=== PATIENT | male | born 1960 | race Caucasian/White ===

== ENCOUNTER 2016-09-04 09:00 | Inpatient (IN) | payer OTHER ==
--- NOTE | ~2016-09-04 | HP ---
Unit #: [id number] #: [id number] Patient: ARABELLA LEZAMA [id number] [place] [address] [id number] MR#: [id number] NAME: ARABELLA LEZAMA. ROOM: P252 Age: 56 Sex: M Admission Date: 09/04/2016 : 1960 Attending Physician: Quoc Izaguirre M.D. Admitting Physician: Quoc Izaguirre M.D. Primary Care Physician: Generic Doctor Not In System HISTORY AND PHYSICAL HISTORY OF PRESENT ILLNESS Arabella is a 56 year old, admitted to [facility] because of his polysubstance abuse which includes cocaine, methamphetamine, and alcohol. PAST MEDICAL HISTORY 1. Long history of illicit substance abuse to include crack cocaine and methamphetamine. 2. History of alcohol abuse. 3. High blood pressure 4. Hyperlipidemia. 5. Chronic obstructive pulmonary disease. PAST SURGICAL HISTORY 1. Right hand. 2. Cataracts. 3. Hydrocele repaired as a young boy. ALLERGIES No known drug allergies. SOCIAL HISTORY He smokes greater than two packs per day, drinks at least twelve beers on a daily basis, and admits to regular use of cocaine and methamphetamine. FAMILY HISTORY Medically noncontributory. REVIEW OF SYSTEMS CONSTITUTIONAL: No fever or chills. HEENT: Denies any sore throat, ear pain or runny nose. CARDIOVASCULAR: Denies chest pain, irregular heart rhythm or palpitations. CHEST: Denies shortness of breath or cough. No hemoptysis. GASTROINTESTINAL: Denies nausea, vomiting, diarrhea or chronic constipation. ENDOCRINE: Denies history of increased thirst or urination. No recent significant weight loss or gain. GENITOURINARY: Denies dysuria, frequency, or hematuria. SKIN: Denies any rashes. HEMATOLOGIC: Denies history of increased bleeding or bruising. MUSCULOSKELETAL: Denies any hot, swollen joints. No generalized muscle pain. NEUROLOGIC: Denies problems with vision or speech. No frequent, severe headaches. No numbness, tingling or weakness in any extremities. Denies Unit #: [id number] #: [id number] Patient: ARABELLA LEZAMA loss of bladder or bowel control. CURRENT MEDICATIONS Detox protocol. PHYSICAL EXAMINATION GENERAL: Alert, well-nourished, no apparent distress. VITAL SIGNS: Blood pressure 152/112, heart rate 100, respirations 16, and temperature 98.6. SKIN: Warm and dry without rash or lesion. HEENT: Normocephalic. TMs not viewed. Oral and nasal passages clear. Conjunctivae clear. PERRLA. EOMs intact. NECK: Supple without lymphadenopathy or thyromegaly. HEART: Regular rate and rhythm without murmur. LUNGS: Decreased breath sounds bilaterally, harsh cough noted. ABDOMEN: Soft, nontender. : Not done. EXTREMITIES: No evidence of cyanosis, clubbing or edema. Moves all without focal deficit. NEUROLOGICAL: Grossly within normal limits. Cranial Nerves: II: Visual messer are intact. III, IV AND : Extraocular movements are intact. Pupils are equal, round and reactive to light. V: Facial sensation is grossly normal. VII: Facial movements and expression are normal. VIII: Auditory acuity grossly intact. IX, X: Uvula is midline. Phonation is normal. XI: Patient shrugs shoulders and turns head normally. XII: Tongue protrudes in the midline. Sensory and Motor Function: Sensory and motor sensation is grossly normal. Motor: moves all extremities well. Coordination: Gait is normal. Deep Tendon Reflexes: Intact. IMPRESSION 1. Psychiatric admission. 2. History of polysubstance abuse. 3. Chronic obstructive pulmonary disease. RECOMMENDATIONS Psychiatric, per psychiatrist. MEDICAL 1. I see no contraindications to participating in facility's activities. 2. Start albuterol nebulizers q.4h while awake. MEDICAL PROGNOSIS Good. MEDICAL CONDITION Stable. Dictated by... Indigo Rosenberg P.A.-C. for Ellen Juarez/gabriel TD: 09/05/2016 11:22 JOB #: [id number] Unit #: [id number] #: [id number] Patient: ARABELLA LEZAMA HISTORY AND PHYSICAL Page 1 of 1 X Indigo Rosenberg HISTORY AND PHYSICAL
--- NOTE | ~2016-09-04 | PA ---
Unit #: [id number] #: [id number] Patient: ARABELLA LEZAMA [id number] [place] [address] [id number] MR#: [id number] NAME: ARABELLA LEZAMA ROOM: P252 Age: 56 Sex: M Admission Date: 09/04/2016 : 1960 Date of Assessment: Attending Physician: Quoc Izaguirre M.D. Admitting Physician: Quoc Izaguirre M.D. Primary Care Physician: Roberta Doctor Not In System PSYCHIATRIC ASSESSMENT DATE OF SERVICE 09/05/2016. INFORMANTS The patient, reliable; OLOP, reliable. CHIEF COMPLAINT "I've a real bad drug problem." HISTORY OF PRESENT ILLNESS Arabella is a 56-year-old man, who reports auditory hallucinations and bizarre experiences due to ongoing drug use. His family reiterated that these were unusual for him and he had no suicidal ideation, intent, or plan. He was admitted for stabilization. PAST PSYCHIATRIC HISTORY One previous admission to this facility at the age of 20 for "behavioral problems." He does not currently take psychiatric medications. FAMILY PSYCHIATRIC HISTORY None reported. SOCIAL HISTORY The patient denied a history of childhood abuse or neglect. He is a heterosexual man with no current partner. He is a 10th grade graduate who is currently unemployed. He is living in a house with his family at this time. PAST MEDICAL HISTORY No chronic medical problems. MEDICATIONS None currently. ALLERGIES No known medication allergies. SUBSTANCE USE HISTORY The patient reports history of abusing alcohol and amphetamines on a frequent basis. MENTAL STATUS EXAMINATION The patient presented as a mildly disheveled man, who appeared his stated Unit #: [id number] #: [id number] Patient: ARABELLA LEZAMA age. He was cooperative with the examination. His speech was spontaneous and easily understood. Musculoskeletal examination was calm. His mood was mildly depressed with a congruent affect. He was alert and fully oriented. His memory and concentration were fair to good. His thought processes were generally goal directed, but he reported auditory and visual disturbances and vague suicidal ideation. Insight and judgment were fair. Fund of knowledge and abstraction were intact. ASSETS AND LIABILITIES The patient is in general good health and has supportive family. Liabilities include ongoing polysubstance use. ADMITTING DIAGNOSES AXIS I: Alcohol dependence, amphetamine abuse. AXIS II: No diagnosis. AXIS III: None acute. AXIS IV: AXIS V: PSYCHIATRIC PLAN The patient was admitted and placed on the alcohol detox protocol. Laboratory studies and physical examination will be ordered and reviewed. TREATMENT GOALS Resolution of intoxication, improvement in insight, and improvement in coping skills. DISCHARGE PLANNING Follow up with CD-IOP at this facility. ESTIMATED LENGTH OF STAY 5 days. Dictated by... Quoc Izaguirre M.D. SHELBY/omar TD: 09/14/2016 03:39 JOB #: [id number] PSYCHIATRIC ASSESSMENT Page 1 of 1 X Quoc Izaguirre MD X PSYCHIATRIC ASSESSMENT
--- NOTE | ~2016-09-04 | DS ---
Unit #: [id number] #: [id number] Patient: ARABELLA LEZAMA [id number] [facility] [address] [place] [address] [id number] I MR#: [id number] NAME: ARABELLA LEZAMA. ROOM: [facility] Age: 56 Sex: M Admission Date: 09/04/2016 : 1960 Discharge Date: 09/06/2016 Attending Physician: Quoc Izaguirre M.D. Primary Care Physician: Generic Doctor Not In System DISCHARGE SUMMARY REASON FOR ADMISSION Mr. Lezama is a 56-year-old man with a history of polysubstance dependence, who came in reporting that his drug use has caused increased dysphoria and perceptual disturbances. He had no suicidal ideation, intent, or plan, but did report auditory and visual hallucinations. He was admitted for detox and further assessment. DIAGNOSTIC STUDIES LABORATORY RESULTS: Please see hospital chart. HOSPITAL COURSE The patient was admitted and placed on the alcohol detox protocol. He did not require initiation of an anti-depressant or antipsychotic medication. He showed rapid clearance of psychotic symptoms and did not show any adverse effects from withdrawal including delirium, hallucinations, or confusion. On the date of discharge, he was able to contract for safety in the outpatient setting. DISCHARGE DIAGNOSES AXIS I: Alcohol dependence with withdrawal, uncomplicated; amphetamine abuse. AXIS II: No diagnosis. AXIS III: None acute. AXIS IV: AXIS V: DISCHARGE INSTRUCTIONS Follow up with the CD-IOP in the evening at this facility. DISCHARGE MEDICATIONS None. CONDITION AT DISCHARGE Improved. PROGNOSIS Good if the patient maintains sobriety and followup. DIET AND ACTIVITY Ad giulia. Unit #: [id number] #: [id number] Patient: ARABELLA LEZAMA Dictated by... Quoc Izaguirre M.D. [facility]/omar TD: 09/14/2016 03:19 JOB #: [id number] DISCHARGE SUMMARY Page 1 of 1 X Quoc Izaguirre MD X DISCHARGE SUMMARY
[2016-09-05 09:55] LABS: BASOPHIL# 0.1 X10e3 (0-0.3); EOSINOPHIL# 0.5 X10e3 (0-0.7); EOSINOPHIL% 4.8 % (0.0-7.0); HEMATOCRIT 47.5 % (38.0-50.0); HEMOGLOBIN 15.8 gm/dL (13.0-16.0); LYMPHOCYTE# 2.6 X10e3 (1.0-3.5); LYMPHOCYTE% 27.6 % (17.0-45.0); MEAN CELL VOLUME 96.6 FL (83-96); MEAN CORPUSCULAR HEMOGLOBIN 32.1 PG (28-34); MEAN CORPUSCULAR HGB CONC 33.2 g/dL (30-36); MEAN PLATELET VOLUME 7.9 FL (6.5-11.5); MONOCYTE# 0.8 X10e3 (0-1.0); NEUTROPHIL# 5.6 X10e3 (1.5-7.1); NEUTROPHIL% 58.6 % (40-75); PLATELET COUNT 311 X10e3 (140-420); RED BLOOD COUNT 4.92 X10e (3.90-5.60); RED CELL DISTRIBUTION WIDTH 12.7 % (11.0-15.5); WHITE BLOOD COUNT 9.6 X10e3 (4.0-10.5)
[2016-09-05 09:57] LABS: DIFF IND NO
[2016-09-05 10:03] LABS: URINE APPEARANCE CLEAR; URINE BILIRUBIN NEG (NEG); URINE BLOOD NEG (NEG); URINE COLOR DK YELLOW; URINE GLUCOSE NEG (NEG); URINE KETONE NEG (NEG); URINE LEUKOCYTE ESTERASE NEG (NEG); URINE NITRATE NEG (NEG); URINE PH 5.5 (5-8); URINE PROTEIN NEG (NEG); URINE UROBILINOGEN 0.2 MG/DL (NEG)
[2016-09-05 10:08] LABS: ALBUMIN SERUM 3.7 g/dL (3.5-5.0); BILIRUBIN,TOTAL 0.7 mg/dL (0.2-2.0); BUN/CREATININE RATIO 17.77; CALCIUM SERUM 8.9 mg/dL (8.4-10.2); CREATININE SERUM 0.9 mg/dL (0.6-1.4); GLOM FILT RATE Estimated 96.5 mL/min (>60); POTASSIUM 4.4 mmol/L (3.5-5.1); PROTEIN TOTAL SERUM 6.6 g/dL (6.0-8.3)
[2016-09-05 12:43] LABS: AMPHETAMINE POS (NEG); BARBITURATES NEG (NEG); BENZODIAZEPINES NEG (NEG); COCAINE NEG (NEG); MARIJUANA NEG (NEG); OPIATES NEG (NEG); TRICYCLIC ANTIDEPRESSANTS NEG (NEG); U METHADONE NEG (NEG)
== END 2016-09-06 12:30 | disposition home or self-care (01) | DRG 897 ==
LOC: P2L 13:18
PROVIDERS: Psychiatry & Neurology Psychiatry
PROC: HZ2ZZZZ Detoxification Services for Substance Abuse Treatment (ICD-10-PCS; principal; 2016-09-04)
DX: F10.230 Alcohol dependence with withdrawal, uncomplicated (principal); F14.10 Cocaine abuse, uncomplicated; I10 Essential (primary) hypertension; F15.10 Other stimulant abuse, uncomplicated; Z56.0 Unemployment, unspecified; E78.5 Hyperlipidemia, unspecified; J44.9 Chronic obstructive pulmonary disease, unspecified; F17.210 Nicotine dependence, cigarettes, uncomplicated
CPT/HCPCS: 80053; 80307; 81003; 85025; 86592

== ENCOUNTER 2016-09-14 20:00 | Inpatient (IN) | payer OTHER ==
[~2016-09-14] VITALS: Ht 172.7 cm; Wt 78.0 kg
--- NOTE | ~2016-09-14 | DS ---
Unit #: [id number] #: [id number] Patient: ARABELLA LEZAMA [id number] [place] [address] [id number] I MR#: [id number] NAME: ARABELLA LEZAMA. ROOM: P178 Age: 56 Sex: M Admission Date: 09/14/2016 : 1960 Discharge Date: 09/16/2016 Attending Physician: Quoc Izaguirre M.D. Primary Care Physician: Generic Doctor Not In System DISCHARGE SUMMARY REASON FOR ADMISSION Mr. Lezama is a 56-year-old man recently discharge from this facility who used "ice" and methamphetamine and demonstrated an extremely disorganized and bizarre state. His father did not feel he could handle him outside of the hospital and the patient was admitted for stabilization. LABORATORY DATA Please see hospital chart. HOSPITAL COURSE Patient was admitted and empirically started on Zyprexa 10 mg at bedtime. His amphetamine induced psychosis had a minimal extent, and quickly resolved. He had no suicidal ideation, intent or plan after discharge and continued to have somewhat superficial insight into his need for treatment. He was referred to the evening CD IOP program due to his work history. DISCHARGE DIAGNOSIS AXIS I: Amphetamine use psychotic disorder, history of alcohol dependence. AXIS II: No diagnosis. AXIS III: None acute. DISCHARGE INSTRUCTIONS Instructed the patient to follow up with the evening CD IOP at [facility]. DISCHARGE MEDICATIONS Zyprexa 10 mg at bedtime for a further 7 days for amphetamine induced psychosis. CONDITION ON DISCHARGE Fair. PROGNOSIS Fair. DIET AND ACTIVITY Per primary care doctor. Dictated by... Quoc Izaguirre M.D. Unit #: [id number] #: [id number] Patient: ARABELLA LEZAMA [facility]/to TD: 10/02/2016 22:28 JOB #: [id number] DISCHARGE SUMMARY Page 1 of 1 X Quoc Izaguirre MD X DISCHARGE SUMMARY
--- NOTE | ~2016-09-14 | PA ---
Unit #: [id number] #: [id number] Patient: ARABELLA LEZAMA [id number] [facility] [address] [place] [address] [id number] I MR#: [id number] NAME: ARABELLA LEZAMA. ROOM: P178 Age: 56 Sex: M Admission Date: 09/14/2016 : 1960 Date of Assessment: 09/15/2016 Attending Physician: Quoc Izaguirre M.D. Admitting Physician: Quoc Izaguirre M.D. Primary Care Physician: Generic Doctor Not In System PSYCHIATRIC ASSESSMENT DATE OF SERVICE 09/15/2016. INFORMANTS The patient, partially reliable. The patient's family, reliable. OLOP, reliable. CHIEF COMPLAINT Psychosis. HISTORY OF PRESENT ILLNESS Mr. Lezama is a 56-year-old man, who was recently discharged from this facility. The patient used "ice" style methamphetamine this evening and is in an extremely disorganized and bizarre state. His blood pressure was also elevated, although not critically so. His father felt he was unable to manage him in the home environment, and the patient could not give a reliable contract for safety or in fact any reliable historical information. He was readmitted. PAST PSYCHIATRIC HISTORY One previous stay at this facility for drug use and a stay at the age of 20 for behavioral problems. He has no psychiatric medications. FAMILY PSYCHIATRIC HISTORY None reported. SOCIAL HISTORY The patient denied a history of childhood abuse or neglect. He is a heterosexual man with no current partner. He is a 10th grade graduate, who is currently unemployed and lives at home with his family. PAST MEDICAL HISTORY No chronic medical problems. MEDICATIONS None currently. ALLERGIES No known medication allergies. SUBSTANCE USE HISTORY The patient has been using amphetamines and has a history of alcohol use. Unit #: [id number] #: [id number] Patient: ARABELLA LEZAMA MENTAL STATUS EXAMINATION The patient presented as a disheveled man, appearing his stated age. He was cooperative with the examination. His speech was spontaneous and slightly rambling. Musculoskeletal examination demonstrated mild psychomotor agitation. His mood was anxious with a congruent affect. He was alert and oriented to person and location, partially to time and partially to situation. Memory and concentration were fair. His thought processes were circumstantial with no evidence of perceptual disturbances, but evidence of paranoia and racing thoughts. He denied suicidal or homicidal ideation. Insight and judgment were fair. Fund of knowledge and abstraction were fair. ASSETS AND LIABILITIES The patient is in general good health and has a place to live. Liabilities include difficulty maintaining sobriety. 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 History of alcohol dependence. AXIS II: No diagnosis. AXIS III: None acute. AXIS IV: AXIS V: PSYCHIATRIC PLAN The patient was admitted and empirically started on Zyprexa 10 mg at bedtime for calming. We expect his substance-induced psychosis to resolve in a day or two and he will be discharged to an outpatient care. ESTIMATED LENGTH OF STAY 3 days. Dictated by... Quoc Izaguirre M.D. SHELBY/omar TD: 09/16/2016 04:23 JOB #: [id number] PSYCHIATRIC ASSESSMENT Page 1 of 1 X Quoc Izaguirre MD X PSYCHIATRIC ASSESSMENT
--- NOTE | ~2016-09-14 | HP ---
Unit #: [id number] #: [id number] Patient: ARABELLA LEZAMA [id number] [facility] [address] [place] [address] [id number] I MR#: [id number] NAME: ARABELLA LEZAMA. ROOM: P178 Age: 56 Sex: M Admission Date: 09/14/2016 : 1960 Attending Physician: Quoc Izaguirre M.D. Admitting Physician: Quoc Izaguirre M.D. Primary Care Physician: Generic Doctor Not In System HISTORY AND PHYSICAL The patient is a 56-year-old male admitted to [facility] on 09/14/2016 for polysubstance abuse. The patient had a recent admission on 09/04/2016 where a full history and physical was completed. That history and physical has been reviewed, no changes need to be made. Dictated by... Gillian Hayes TD: 09/16/2016 02:04 JOB #: [id number] HISTORY AND PHYSICAL Page 1 of 1 X TIERRA CRAIN APRN X HISTORY AND PHYSICAL
== END 2016-09-16 13:35 | DRG 897 ==
LOC: P1E 22:05
DX: F15.151 Other stimulant abuse with stimulant-induced psychotic disorder with hallucinations (principal)